=== PATIENT | female | born 1940 | race Caucasian/White ===

== ENCOUNTER 2017-07-09 07:28 | Day surgery (SDC) | payer OTHER ==
[2017-07-07 11:55] VITALS: BMI 27.1
[2017-07-09] MEDS ORDERED: TROPICAMIDE 1% OPHTH SOLN 15 ML BOTTLE ONE (07:57)
[2017-07-09] MEDS ORDERED: PHENYLEPHRINE 2.5% OPHTH SOLN 15 ML BOTTLE ONE (07:58)
[2017-07-09] MEDS ORDERED: CIPROFLOXACIN 0.3% EYE DROPS 5 ML BOTTLE ONE (07:58)
[2017-07-09] MEDS ORDERED: CYCLOPENTOLATE 2% OPHTH SOLN 2 ML BOTTLE ONE (07:58)
[2017-07-09] MEDS ORDERED: CARBACHOL 0.01% INTRA-OCULAR 1.5 ML VIAL ONE (07:59)
[2017-07-09] MEDS ORDERED: BSS (NA/CA/MG/K) BALANCED SALT SOLUTION OPHTH SOLN 15 ML BOTTLE ONE (07:59)
[2017-07-09 08:21] VITALS: TEMP 97.8
[2017-07-09] MEDS ORDERED: MIDAZOLAM HCL 2 MG/2 ML SINGLE DOSE VIAL ONE (10:22)
--- NOTE | 2017-07-09 11:05 | OP ---
DATE OF OPERATION: 07/09/2017 OPERATIVE PROCEDURE: Lens Phacoemulsification with Posterior Chamber Intraocular Lens Placement Left Eye PREOPERATIVE DIAGNOSIS: Visually Significant Cataract of Left Eye POSTOPERATIVE DIAGNOSIS: Visually Significant Cataract of Left Eye SURGEON: Reg Campoverde M.D. ANESTHESIA: MAC PROCEDURE: The patient was brought to the operating room and placed under monitored anesthesia care by Anesthesia. A drop of Tetracaine was then placed over the left eye. The patient was then prepped and draped in the usual sterile manner. A speculum was then placed over the left eye. The eye was then well irrigated with copious amounts of BSS (balanced salt solution). The operating microscope was then moved into position. A paracentesis was performed using a 15 degree blade. At this point 0.5 mL of 1% preservative-free lidocaine was injected into the anterior chamber. Amvisc plus was then injected into the anterior chamber. A clear corneal incision was then formed using a 2.2-mm keratome. A capsulorrhexis was then performed in a continuous circular fashion beginning with a cystotome, completed with an Utratas forceps. Hydrodissection was then performed using BSS on a cannula. The phaco probe was then introduced through the corneal wound and the cataract was removed using the phaco chop technique. Approximately 3 seconds of absolute phaco time was used. The remaining cortex was then removed using irrigation and aspiration with an I/A probe. The capsule was then filled with regular Amvisc and the capsule was noted to be intact. A previously selected foldable posterior chamber intraocular lens was then injected into the capsule through the corneal wound using a lens injector. It was then dialed into position using a Sinskey hook. The Amvisc was then removed using irrigation and aspiration. Miostat was then injected through the paracentesis to constrict the pupil. The paracentesis and corneal wound were then hydrated and noted to be water tight. A drop of Maxitrol was then placed over the eye. The speculum was removed and clear shield was taped over the eye. The patient tolerated the procedure well and there were no surgical complications. The patient was asked to follow up in my office the next day. REG CAMPOVERDE M.D. JARETT/[id number]
[2017-07-09 11:35] VITALS: BP 138/65; PULSE 74
== END 2017-07-09 11:30 | disposition home or self-care (01) ==
LOC: FASU 07:28
PROVIDERS: ATTEND Ophthalmology
PROC: 08RK3JZ Replacement of Left Lens with Synthetic Substitute, Percutaneous Approach (ICD-10-PCS; principal; 2017-07-09 10:31)
DX: H26.8 Other specified cataract (principal)

== ENCOUNTER 2017-07-23 07:27 | Day surgery (SDC) | payer OTHER ==
[2017-07-21 12:08] VITALS: BMI 27.1
[2017-07-23] MEDS ORDERED: CIPROFLOXACIN 0.3% EYE DROPS 5 ML BOTTLE ONE (07:57)
[2017-07-23] MEDS ORDERED: CYCLOPENTOLATE 2% OPHTH SOLN 2 ML BOTTLE ONE (07:57)
[2017-07-23] MEDS ORDERED: TROPICAMIDE 1% OPHTH SOLN 15 ML BOTTLE ONE (07:58)
[2017-07-23] MEDS ORDERED: PHENYLEPHRINE 2.5% OPHTH SOLN 15 ML BOTTLE ONE (07:58)
[2017-07-23] MEDS ORDERED: LIDOCAINE 1% P/F 10 MG/ML VIAL ONE (08:17)
[2017-07-23] MEDS ORDERED: BSS (NA/CA/MG/K) BALANCED SALT SOLUTION OPHTH SOLN 15 ML BOTTLE ONE (08:18)
[2017-07-23] MEDS ORDERED: CARBACHOL 0.01% INTRA-OCULAR 1.5 ML VIAL ONE (08:18)
[2017-07-23] MEDS ORDERED: MIDAZOLAM HCL 2 MG/2 ML SINGLE DOSE VIAL ONE (09:06)
[2017-07-23 09:48] VITALS: TEMP 97.6
[2017-07-23 10:14] VITALS: BP 135/69; PULSE 65
--- NOTE | 2017-07-23 17:35 | OP ---
DATE OF OPERATION: 07/23/2017 OPERATIVE PROCEDURE: Lens Phacoemulsification with Posterior Chamber Intraocular Lens Placement Right Eye PREOPERATIVE DIAGNOSIS: Visually Significant Cataract of Right Eye POSTOPERATIVE DIAGNOSIS: Visually Significant Cataract of Right Eye SURGEON: Reg Campoverde M.D. ANESTHESIA: MAC ANESTHESIOLOGIST: PROCEDURE: The patient was brought to the operating room and placed under monitored anesthesia care by Anesthesia. A drop of Tetracaine was then placed over the right eye. The patient was then prepped and draped in the usual sterile manner. A speculum was then placed over the right eye. The eye was then well irrigated with copious amounts of BSS (balanced salt solution). The operating microscope was then moved into position. A paracentesis was performed using a 15 degree blade. At this point 0.5 mL of 1% preservative-free lidocaine was injected into the anterior chamber. Amvisc plus was then injected into the anterior chamber. A clear corneal incision was then formed using a 2.2 mm keratome. A capsulorrhexis was then performed in a continuous circular fashion beginning with a cystotome, completed with an Utratas forceps. Hydrodissection was then performed using BSS on a cannula. The phaco probe was then introduced through the corneal wound and the cataract was removed using the phaco chop technique. Approximately 3 seconds of absolute phaco time was used. The remaining cortex was then removed using irrigation and aspiration with an I/A probe. The capsule was then filled with regular Amvisc and the capsule was noted to be intact. A previously selected foldable posterior chamber intraocular lens was then injected into the capsule through the corneal wound using a lens injector. It was then dialed into position using a Sinskey hook. The Amvisc was then removed using irrigation and aspiration. Miostat was then injected through the paracentesis to constrict the pupil. The paracentesis and corneal wound were then hydrated and noted to be water tight. A drop of Maxitrol was then placed over the eye. The speculum was removed and clear shield was taped over the eye. The patient tolerated the procedure well and there were no surgical complications. The patient was asked to follow up in my office the next day. REG CAMPOVERDE M.D. JARETT/[id number]
== END 2017-07-23 10:15 | disposition home or self-care (01) ==
LOC: FASU 07:27
PROVIDERS: ATTEND Ophthalmology
PROC: 08RJ3JZ Replacement of Right Lens with Synthetic Substitute, Percutaneous Approach (ICD-10-PCS; principal; 2017-07-23 09:15)
DX: H26.8 Other specified cataract (principal)

== ENCOUNTER 2018-07-18 21:49 | Emergency (ER) | payer OTHER ==
[2018-07-18 22:04] VITALS: PULSE 75; TEMP 97.5; BMI 30.2
[2018-07-18] MEDS ORDERED: NITROGLYCERIN SUBLINGUAL 1/150 0.4 MG TAB SL ONE (22:07)
[2018-07-18] MEDS ORDERED: ACETAMINOPHEN 500 MG TABLET (FP) PO ONE (22:15)
[2018-07-18] MEDS ORDERED: ACETAMINOPHEN 325 MG TABLET (FP) ONE (22:21)
--- NOTE | 2018-07-18 22:36 | PDOC ---
Attending Attestation - Resident Resident Name: Cari Rutherford - ED Attending Attestation I have performed the following: I have examined & evaluated the patient, The case was reviewed & discussed with the resident, I agree w/resident's findings & plan <Maria Luisa June - Last Filed: 07/18/18 22:54> - HPI HPI: 07/18/18 23:00 The patient is a 77 year old female with past medical history of hyperlipidemia , s/p left TKR who presents to the ED with elevated blood pressure. 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 Today she was at [facility] visiting her extremely ill when her blood pressure went up to the 200s. She reported an associated headache. In the ED, the initial reading was 170 and subsequently went down to the 140s after to sublingual nitroglycerin. Patient denies any associated chest pain, palpitations, shortness of breath, diaphoresis, lightheadedness or syncope. Denies any recent illness, fevers or chills. - Physicial Exam PE: 07/18/18 23:01 GENERAL: Awake, alert, and fully oriented, in no acute distress HEAD: No signs of trauma LUNGS: Breath sounds equal, clear to auscultation bilaterally HEART: Regular rate and rhythm ABDOMEN: Soft, nontender, normoactive bowel sounds. EXTREMITIES: Normal range of motion, no edema. NEUROLOGICAL: Cranial nerves II through XII grossly intact. Normal speech SKIN: Warm, Dry, normal turgor, no rashes - Medical Decision Making 07/18/18 23:02 Documentation prepared by Reyna Childs, acting as medical translator for Maria Luisa June MD. <Reyna Childs - Last Filed: 07/18/18 23:02>
[2018-07-18 22:54] VITALS: BP 152/57
--- NOTE | 2018-07-18 23:07 | PDOC ---
History of Present Illness - General Chief Complaint: Blood Pressure Problem Stated Complaint: BLOOD PRESSURE PROBLEM Time Seen by Provider: 07/18/18 22:32 - History of Present Illness Initial Comments: 07/18/18 23:06 The patient is a 77 year old female with a PMH of HLD who presents to our ED c/ o outside readings of elevated BP. Patient states she was visiting her who is at [facility] (s/p CVA) when she had her BP checked x3 and it was a systolic in the 200's prompting her visit to the ED. Evaluated by her PMD earlier this week with SBP in 150's. States she became concerned because she has no h/o high blood pressure noting her pressures are of SBP 110's. Notes a lot of life stressors including her 's recent CVA as well as her sister having Lewy Body Dementia. Patient's friend had a stroke last month and patient is concerned she might be at risk for stroke. Patient follows with a booster plant operator with last evaluation two weeks previous. States she had a ANTONIA, carotid doppler and LE duplex in 07/2017 with no abnormal/concerning findings. Repeat annual ANTONIA, carotid doppler and LE duplex scheduled for 08/07/18. ROS is positive for headache. Patient denies shortness of breath, chest pain, LE swelling, nausea/vomiting, lightheadedness, palpitations. NKDA Social: denies toxic habits PMD: Dr. Iverson Past History - Past Medical History Allergies/Adverse Reactions: Allergies Allergy/AdvReac Type Severity Reaction Status Date / Time iodine Allergy Severe Low Blood Verified 07/23/17 08:19 Pressure celecoxib [From Celebrex] Allergy Intermediate Rash Verified 07/23/17 08:19 ibuprofen [From Advil] Allergy Intermediate Rash Verified 04/24/18 08:09 nabumetone [From Relafen] Allergy Intermediate Rash Verified 04/24/18 08:09 oxycodone [Oxycodone] Allergy Intermediate Rash Verified 04/24/18 08:09 Sulfa (Sulfonamide Allergy Intermediate Rash Verified 04/24/18 08:09 Antibiotics) levofloxacin [From Levaquin] Allergy Verified 04/24/18 08:09 nitrofurantoin Allergy Verified 04/24/18 08:09 cephalexin AdvReac Severe severe Verified 04/24/18 08:09 constipation tramadol AdvReac Intermediate Nausea Verified 04/24/18 08:09 PCE 333 Allergy Severe Difficulty Uncoded 04/24/18 08:09 Breathing Home Medications: Ambulatory Orders Aspirin [ASA -] 81 mg PO DAILY 03/08/13 Ranitidine [Zantac -] 150 mg PO BID 03/08/13 Red Yeast Rice 600 mg PO DAILY 03/08/13 Ubidecarenone [Co Q-10] 10 mg PO DAILY 03/08/13 Cholecalciferol (Vitamin D3) [Vitamin D-3] 2,000 unit PO DAILY 03/10/13 Docosahexanoic Acid/Epa [Fish Oil Softgel] 1 each PO DAILY 03/10/13 Multivitamin [Multivitamins] 1 each PO DAILY 03/10/13 Vitamin B Complex [B Complex] 1 each PO DAILY 03/10/13 Hydrochlorothiazide [Hctz -] 25 mg PO DAILY #30 tablet 07/18/18 Hydrochlorothiazide [Hctz -] 25 mg PO DAILY #30 tablet 07/19/18 Anemia: No Asthma: No Cancer: No Cardiac Disorders: No CVA: No COPD: No CHF: No Dementia: No Diabetes: No GI Disorders: Yes (GERD) Disorders: No HTN: No Hypercholesterolemia: Yes (NO MEDS) Liver Disease: No Seizures: No Thyroid Disease: No - Surgical History Abdominal Surgery: No Appendectomy: No Cardiac Surgery: No Cholecystectomy: No Lung Surgery: No Neurologic Surgery: No Orthopedic Surgery: Yes (LEFT TKR 2010) - Suicide/Smoking/Psychosocial Hx Smoking History: Never smoked Have you smoked in the past 12 months: No Hx Alcohol Use: No Drug/Substance Use Hx: No Substance Use Type: Alcohol Hx Substance Use Treatment: No Review of Systems - Review of Systems Constitutional: No: Chills, Fever HEENTM: No: Blurred Vision Respiratory: No: Cough, Shortness of Breath Cardiac (ROS): No: Chest Pain, Lightheadedness, Palpitations, Syncope ABD/GI: No: Constipated, Diarrhea, Nausea, Vomiting Neurological: Yes: Headache Psychiatric: Yes: Anxiety *Physical Exam - Vital Signs Last Vital Signs Temp Pulse Resp BP Pulse Ox 97.5 F L 75 20 152/57 L 97 07/18/18 21:58 07/18/18 21:58 07/18/18 21:58 07/18/18 22:54 07/18/18 21:58 - Physical Exam General Appearance: Yes: Nourished, Appropriately Dressed HEENT: positive: Normal Voice, Hearing Grossly Normal Neck: positive: Trachea midline, Supple Respiratory/Chest: positive: Lungs Clear, Normal Breath Sounds. negative: Labored Respiration, Rapid RR, Crackles, Rales, Rhonchi, Stridor, Wheezing Cardiovascular: positive: S1, S2, Systolic Murmur. negative: Tachycardia Vascular Pulses: Dorsalis-Pedis (R): 2+, Doralis-Pedis (L): 2+ Gastrointestinal/Abdominal: positive: Normal Bowel Sounds, Soft, Other ( reducible umbilical hernia) Musculoskeletal: negative: CVA Tenderness (R), CVA Tenderness (L) Extremity: positive: Normal Capillary Refill, Normal Inspection Integumentary: positive: Normal Color, Dry, Warm Neurologic: positive: Fully Oriented, Alert Moderate Sedation - Procedure Monitoring Vital Signs: Procedure Monitoring Vital Signs Temperature 97.5 F L 07/18/18 21:58 Pulse Rate 75 07/18/18 21:58 Respiratory Rate 20 07/18/18 21:58 Blood Pressure 152/57 L 07/18/18 22:54 O2 Sat by Pulse Oximetry (%) 97 07/18/18 21:58 Heart Score/ECG Review - ECG Impressions Comment:: 07/19/18 06:25 ECG shows HR 66, NSR with LAD, LVH, no SANDY/STD/TWI ED Treatment Course - Medications Given in the ED: ED Medications Discontinued Medications Generic Name Dose Route Start Last Admin Trade Name Freq PRN Reason Stop Dose Admin Acetaminophen 1,000 mg 07/18/18 22:15 07/18/18 22:26 Tylenol - PO 07/18/18 22:16 1,000 mg ONCE ONE Administration Nitroglycerin 0.8 mg 07/18/18 22:07 07/18/18 22:11 Nitrostat - SL 07/18/18 22:08 0.8 mg ONCE ONE Administration Medical Decision Making - Medical Decision Making 07/18/18 23:07 77 year old female with acute onset high blood pressure (215/89 @ presentation) . C/o headache. H/o multiple life stressors. No focal neurologic deficit on exam. Repeat BP 130's/90's. Will obtain ECG and give trial of Hydralazine. Reassess. 07/18/18 23:27 ECG shows HR 66, NSR, LAD and LVH, no SANDY/STD/TWI No previous ECG in EMR S/p Hydralazine patient's BP 152/97. Will give patient outpatient Hydralazine prescription and discharge home 07/19/18 06:01 07/19/18 06:01 07/19/18 06:04 07/19/18 06:25 07/19/18 06:27 *DC/Admit/Observation/Transfer Diagnosis at time of Disposition: High blood pressure - Discharge Dispostion Disposition: HOME Condition at time of disposition: Good Decision to Admit order: No - Prescriptions Prescriptions: Hydrochlorothiazide [Hctz -] 25 mg PO DAILY #30 tablet Hydrochlorothiazide [Hctz -] 25 mg PO DAILY #30 tablet - Referrals Referrals: Lilia Iverson MD [Primary Care Provider] - - Patient Instructions Printed Discharge Instructions: DI for High Blood Pressure Additional Instructions: You were evaluated today for your high blood pressure. At this time you are safe for discharge home. We have sent a prescription for a blood pressure medication to your pharmacy. Please take as directed. Follow-up with your primary care doctor in the next week for further evaluation. Your care is not complete until you are evaluated by your primary care doctor. - Post Discharge Activity
[2018-07-18] MEDS ORDERED: VALSARTAN 40 MG TABLET (FP) PO ONE (23:21)
[2018-07-18] MEDS ORDERED: VALSARTAN 80 MG TABLET (UD) ONE (23:22)
--- NOTE | 2018-07-20 11:23 | EKG ---
Test Reason : Blood Pressure : / mmHG Vent. Rate : 066 BPM Atrial Rate : 066 BPM P-R Int : 176 ms QRS Dur : 094 ms QT Int : 416 ms P-R-T Axes : 045 -36 020 degrees QTc Int : 436 ms NORMAL SINUS RHYTHM POSSIBLE LEFT ATRIAL ENLARGEMENT LEFT AXIS DEVIATION LEFT VENTRICULAR HYPERTROPHY ABNORMAL ECG WHEN COMPARED WITH ECG OF 09-SEP-2001 16:57, NO SIGNIFICANT CHANGE WAS FOUND Confirmed by JONAH MURO, LJ ([id number]) on 07/20/2018 11:23:32 AM Referred By: Confirmed By:LJ MCKENZIE MD
== END 2018-07-18 23:31 | disposition home or self-care (01) ==
LOC: SUPCPDRO 21:49 → JER 21:49
DX: I10 Essential (primary) hypertension (principal); E78.5 Hyperlipidemia, unspecified; Z96.651 Presence of right artificial knee joint
CPT/HCPCS: 93005; 93010; 99282-25

== ENCOUNTER 2020-02-23 07:58 | Day surgery (SDC) | payer OTHER ==
--- NOTE | 2019-11-10 10:00 | HP ---
DATE OF ADMISSION: 12/08/2019 DATE OF DICTATION: 10/19/2019 REASON FOR ADMISSION: Cholelithiasis, biliary colic. BRIEF HISTORY: This is a 79-year-old female who has occasional bouts of epigastric and right upper quadrant pain after eating. The episodes would last less than 6 hours and then resolve. She underwent an ultrasound that demonstrated multiple gallstones without evidence of cholecystitis. She denies a change in stool color, urine color. She has no fever, chills, or sweats. The patient is here today for a laparoscopic cholecystectomy. PAST MEDICAL HISTORY: Significant for reflux disease, hypercholesterolemia. Patient has a history of bladder incontinence and is status post 2 bladder suspension operations. PAST SURGICAL HISTORY: She has had GALINDO/BSO via lower midline. She has had anterior and posterior vaginal repair. Left knee replacement. Cataract surgery. ALLERGIES: IODINE, SULFA, TRAMADOL, RELAFEN, ADVIL, CELEBREX, OXYCODONE, KEFLEX, LEVAQUIN, CIPRO, and NITROFURANTOIN. MEDICATIONS: Red yeast rice, Potassium, Magnesium, Centrum Silver, Vitamin D, Low dose Aspirin, Cultrelle Probiotic, Vitamin B Complex, Vitamin C, Tums and Prevacid AC. SOCIAL HISTORY: She does not smoke. Does not drink. No history of drug use. PHYSICAL EXAMINATION: HEENT: There is no icterus. Abdomen: Soft, nontender, nondistended. IMPRESSION/PLAN: Biliary colic, symptomatic cholelithiasis. This is a 79-year-old female with an ultrasound consistent with cholelithiasis and a history of consistent with biliary colic. I think some of her discomfort could be related to reflux disease, and some of it is also related to her gallbladder, and therefore, I think performed a laparoscopic cholecystectomy in this setting would be helpful even though it will not completely alleviate the other issues she has such as reflux. Patient will be scheduled for a laparoscopic cholecystectomy, possible open. The indications, alternatives, and complications of procedure discussed. Questions answered. We will plan to obtain written consent the day of surgery. YUKO LUCIANO M.D. [id number] cc: Lilia Iverson MD [facility]
[2020-02-23] MEDS ORDERED: ONDANSETRON 4 MG/2 ML VIAL ONE (08:06)
[2020-02-23] MEDS ORDERED: GLYCOPYRROLATE 0.2 MG/1 ML VIAL ONE (08:06)
[2020-02-23] MEDS ORDERED: DEXAMETHASONE SOD PHOSPHATE 4 MG/1 ML VIAL ONE (08:06)
[2020-02-23] MEDS ORDERED: MIDAZOLAM HCL 2 MG/2 ML SINGLE DOSE VIAL ONE (08:07)
[2020-02-23] MEDS ORDERED: PROPOFOL 20 ML ONE (08:07)
[2020-02-23] MEDS ORDERED: ROCURONIUM BROMIDE 50 MG/5 ML SYRINGE ONE (08:07)
[2020-02-23] MEDS ORDERED: NEOSTIGMINE METHYLSULFATE 0.5 MG/ML - 10 ML MDV ONE (08:07)
[2020-02-23 08:24] VITALS: BMI 25.1
[2020-02-23] MEDS ORDERED: ceFAZolin SODIUM 1 GM VIAL ONE (10:08)
[2020-02-23] MEDS ORDERED: ONDANSETRON 4 MG/2 ML VIAL IVPUSH PRN ×2 (10:57→11:06)
[2020-02-23] MEDS ORDERED: morphine SULFATE 4 MG/ML VIAL IVPB PRN (11:06)
[2020-02-23] MEDS ORDERED: oxyCODONE HCL 5 MG TABLET PO PRN (11:06)
[2020-02-23] MEDS ORDERED: D5-1/2NS+20 MEQ KCL - 20 MEQ/1,000 ML INFUS.BAG IV SCH (11:15)
[2020-02-23] MEDS: ACETAMINOPHEN 500 MG TABLET (FP) PO PRN ×3 (11:45→21:12)
--- NOTE | 2020-02-23 15:40 | OP ---
DATE OF OPERATION: 02/23/2020 PREOPERATIVE DIAGNOSIS: Biliary colic, symptomatic cholelithiasis. POSTOPERATIVE DIAGNOSIS: Biliary colic, symptomatic cholelithiasis. PROCEDURE: Laparoscopic cholecystectomy. SURGEON: Yuko Luciano MD TILTING HEAD BAND SAWYER: Sony Helms MD ANESTHESIA: Lyndon Conti MD (general) ESTIMATED BLOOD LOSS: Minimal. SPECIMEN: Gallbladder. BRIEF HISTORY: This is a 79-year-old female who has bouts of epigastric and right upper quadrant pain. She is symptomatic from biliary disease and here for a laparoscopic cholecystectomy. DESCRIPTION OF PROCEDURE: Patient identified and appropriately positioned on the operating table. After placement of anesthesia, the abdomen was prepped and draped in the usual sterile fashion using ChloraPrep. An infraumbilical incision is made, deepened to subcutaneous tissue. The fascia was divided sharply, the peritoneum incised. Under direct vision, an 11-mm port placed. The remaining 3 ports placed under direct vision as well. The gallbladder identified in the right upper quadrant. It is reflected over the dome of the liver in standard fashion, going from lateral to medial, and neck and the infundibulum of the gallbladder identified, followed by the cystic duct. The cystic duct circumferentially isolated, clipped, and then divided. The cystic artery identified more medially and posteriorly. This was subsequently clipped and then divided in a similar fashion. The gallbladder itself was removed from the liver bed with electrocautery. Prior to completing, the liver bed was irrigated and the operative field noted to be hemostatic. The ports removed under direct vision. Port sites hemostatic. The gallbladder brought out through the umbilical port site. The fascia at the umbilicus reapproximated with interrupted 0 Vicryl suture, all skin closed with 4-0 subcuticular Biosyn followed by Dermabond. At the conclusion of the case, sponge, lap, needle, and instrument counts correct. ATTESTATION: Brief operative note handwritten on the preprinted form. [facility] queried prior to giving any narcotics. YUKO LUCIANO M.D. [id number] MTDD
[2020-02-23] MEDS: FAMOTIDINE 20 MG/50 ML IVPB 20 MG/50 ML MG IVPB SCH (21:10)
[2020-02-24] MEDS: FAMOTIDINE 20 MG/50 ML IVPB 20 MG/50 ML MG IVPB SCH (09:41)
[2020-02-24] MEDS ORDERED: ENOXAPARIN NA (PORCINE) 40 MG/0.4 ML DISP.SYRIN SQ SCH (10:00)
[2020-02-24] MEDS ORDERED: ASPIRIN 81 MG CHEWABLE TABLETS PO SCH ×2 (10:00)
[2020-02-24 10:04] VITALS: BP 136/55; PULSE 70; TEMP 98.5
--- NOTE | 2020-02-25 16:39 | PATH ---
Surgical Pathology Report Patient Name: LEANNA MENDEZ Med. Rec. #: [id number] /Age/Gender: 1940 (Age: 79) / F Account: [id number] Location: [facility] Taken: 02/23/2020 Received: 02/23/2020 Reported: 02/25/2020 Physicians: Johnny Bennett Specimen(s) Received GALLBLADDER Clinical History Acute cholecystitis Final Diagnosis GALLBLADDER, CHOLECYSTECTOMY: GALLBLADDER SHOWING CHRONIC CHOLECYSTITIS WITH ADENOMYOMATOUS HYPERPLASIA. CHOLELITHIASIS. Electronically Signed Gabriela Barrera M.D. Gross Description Received in formalin, labeled "gallbladder," is an 8.0 x 3.4 x 3.1 cm. gallbladder with a 0.2 cm. in length portion of cystic duct attached. The outer surface is morley green and varies from smooth to shaggy. The lumen contains green, tenacious bile as well as 2 brown, irregular choleliths averaging 1.5 cm greatest dimension. The mucosa displays 3 raised nodular lesions ranging around 0.2-0.3 cm in greatest dimension. The remaining mucosa is green with focal erosions. The wall of the gallbladder measures 0.1 cm. in thickness. Loading Unit Tool Setter sections are submitted in 2 cassettes as follows: 1-nodular lesions; 2-cystic duct margin and marketing sales representative uninvolved gallbladder mucosa. /02/24/[address] [facility]02/24/2020
== END 2020-02-24 10:18 | disposition home or self-care (01) ==
LOC: FASU 07:58 → FASUSAT 07:58 → FM/S 15:09 → FASUSAT 02-24 10:18
PROVIDERS: ATTEND Surgery
PROC: 0FT44ZZ Resection of Gallbladder, Percutaneous Endoscopic Approach (ICD-10-PCS; principal; 2020-02-23 10:06)
DX: K80.51 Calculus of bile duct without cholangitis or cholecystitis with obstruction (principal); E78.00 Pure hypercholesterolemia, unspecified
CPT/HCPCS: 88304-TC; 94760

== ENCOUNTER 2020-05-08 01:43 | Emergency (ER) | payer OTHER ==
--- OUTSIDE RECORDS SUMMARY | 2020-05-08 02:14 | XMS ---
:1940 Author Organization [facility] Support Name Relationship Address Phone CARLIN ANDERSON DAUGHTER [address] [place] [address] RE Unavailable Unavailable Unavailable FABI MENDEZ [address] [phone] [place] [address] Re-disclosure Warning The records that you are about to access may contain information from federally- assisted alcohol or drug abuse programs. If such information is present, then the following federally mandated warning applies: This information has been disclosed to you from records protected by federal confidentiality rules (42 CFR part 2). The federal rules prohibit you from making any further disclosure of this information unless further disclosure is expressly permitted by the written consent of the person to whom it pertains or as otherwise permitted by 42 CFR part 2. A general authorization for the release of medical or other information is NOT sufficient for this purpose. The Federal rules restrict any use of the information to criminally investigate or prosecute any alcohol or drug abuse patient.The records that you are about to access may contain highly sensitive health information, the redisclosure of which is protected by Article 27-F of the [facility] Public Health law. If you continue you may haveaccess to information: Regarding HIV / AIDS; Provided by facilities licensed or operated by the [facility] Office of Mental Health; or Provided by the [facility] Office for People With Developmental Disabilities. If such information is present, then the following [facility] mandated warning applies: This information has been disclosed to you from confidential records which are protected by state law. State law prohibits you from making any further disclosure of this information without the specific written consent of the person to whom it pertains, or as otherwise permitted by law. Any unauthorized further disclosure in violation of state law may result in a fine or alf sentence or both. A general authorization for the release of medical or other information is NOT sufficient authorization for further disclosure. Insurance Providers Payer name Policy type Policy ID Covered Covered green party's Policy P maliha / Coverage green party ID relationship to Vidal Inf ormation type vidal [employer] [id number] SP [id number] 02 HEALTHCARE HMO 2 MEDICARE [id number] SP [id number] [employer] [id number] SP [id number] 02 HEALTHCARE HMO 2 [employer] (HMO) [id number] 2 [place] MEDIC[place] [id number] PART B DOWNSTATE Results ID Date Data Source [id number] 02/20/2020 09:36:00 AM EDT [facility] Name Value Range Interpretation Description Data Sup porting Code Source(s) Document(s ) SARS [facility] coronavirus 2 RNA This lab was ordered by BRIEN cho MORIAH and reported by [facility]. Procedure
[2020-05-08 02:16] VITALS: BP 182/63; PULSE 72; TEMP 98.5; BMI 28.0
--- NOTE | 2020-05-08 03:14 | PDOC ---
History of Present Illness - General Chief Complaint: Wound Stated Complaint: RIGHT LEG VEIN BLEEDING Time Seen by Provider: 05/08/20 02:48 History Source: Patient Exam Limitations: No Limitations - History of Present Illness Initial Comments: 05/08/20 03:13 79F PMH HTN presenting with a bleeding varicose vein on the lateral right calf after drying up from shower. No bleeding during shower or before. Put bandage on and BATOOL wrapped. Came in because bandage was soaked. Past History - Medical History Allergies/Adverse Reactions: Allergies Allergy/AdvReac Type Severity Reaction Status Date / Time iodine Allergy Severe Low Blood Verified 05/08/20 02:13 Pressure celecoxib [From Celebrex] Allergy Intermediate Rash Verified 05/08/20 02:13 ibuprofen [From Advil] Allergy Intermediate Rash Verified 05/08/20 02:13 nabumetone [From Relafen] Allergy Intermediate Rash Verified 05/08/20 02:13 oxycodone [Oxycodone] Allergy Intermediate Rash Verified 05/08/20 02:13 Sulfa (Sulfonamide Allergy Intermediate Rash Verified 05/08/20 02:13 Antibiotics) levofloxacin [From Levaquin] Allergy Verified 05/08/20 02:13 nitrofurantoin Allergy Verified 05/08/20 02:13 cephalexin AdvReac Severe severe Verified 05/08/20 02:13 constipation ciprofloxacin [From Cipro] AdvReac Severe Nausea Verified 05/08/20 02:13 tramadol AdvReac Intermediate Nausea Verified 05/08/20 02:13 PCE 333 Allergy Severe Difficulty Uncoded 05/08/20 02:13 Breathing Home Medications: Ambulatory Orders Aspirin [ASA -] 81 mg PO DAILY 03/08/13 Red Yeast Rice 600 mg PO DAILY 03/08/13 Ubidecarenone [Co Q-10] 10 mg PO DAILY 03/08/13 Cholecalciferol (Vitamin D3) [Vitamin D-3] 2,000 unit PO DAILY 03/10/13 Multivitamin [Multivitamins] 1 each PO DAILY 03/10/13 Vitamin B Complex [B Complex] 1 each PO DAILY 03/10/13 Ascorbate Calcium [Vitamin C] 500 mg PO DAILY 02/17/20 Magnesium 250 mg PO DAILY 02/17/20 Acetaminophen [Tylenol .Extra-Strength -] 1,000 mg PO Q4H PRN tablet 02/24/20 Aspirin [ASA -] 81 mg PO DAILY tab.chew 02/24/20 Valsartan [Diovan] 40 mg PO DAILY #30 tablet 05/08/20 Anemia: No Asthma: No Cancer: No Cardiac Disorders: No CVA: No COPD: No CHF: No Dementia: No Diabetes: No GI Disorders: Yes (GERD) Disorders: No HTN: No Hypercholesterolemia: Yes (NO MEDS) Liver Disease: No Seizures: No Thyroid Disease: No - Surgical History Abdominal Surgery: No Appendectomy: No Cardiac Surgery: No Cholecystectomy: No Lung Surgery: No Neurologic Surgery: No Orthopedic Surgery: Yes (LEFT TKR 2010) - Psycho-Social/Smoking History Smoking History: Never smoked Have you smoked in the past 12 months: No Information on smoking cessation initiated: No - Substance Abuse Hx (Audit-C & DAST Scrn) How often the patient has a drink containing alcohol: Never Score: In Men: 4 or > Positive; In Women: 3 or > Positive: 0 Screen Result (Pos requires Nsg. Audit-10AR): Negative In the last yr the pt used illegal drug/Rx for NonMed reason: No Score: Yes response is considered Positive: 0 Screen Result (Positive result requires Nsg. DAST-10): Negative Review of Systems - Review of Systems Comments:: 05/09/20 08:01 CONSTITUTIONAL: Denies F / C HEENT: Denies lightheadedness RESP: Denies SOB, cough CARD: Denies chest pain GI: Denies N / V / D, abdominal pain : Denies dysuria NEURO: Denies numbness, tingling, weakness MSK: Denies back pain SKIN: Denies rashes *Physical Exam - Vital Signs Last Vital Signs Temp Pulse Resp BP Pulse Ox 98.5 F 72 16 182/63 H 97 05/08/20 01:45 05/08/20 01:45 05/08/20 01:45 05/08/20 01:45 05/08/20 01:45 - Physical Exam 05/09/20 08:02 GEN: Well appearing, NAD, comfortable. AAOx3. HEENT: NC/AT, EOMI. No facial asymmetry. Normal voice. Supple neck w/ FROM. CV: S1/S2, RRR, no m/r/g LUNG: CTAB, no wheezes, crackles, rales, rhonchi. GI: Soft, ndnt, +BS, no guarding, no rebound. MSK: lateral right calf varicose vein under bandage, no longer bleeding. No obvious deformities of all extremities. SKIN: Warm, dry, no rashes appreciated. PSYCH: Normal mood and affect. NEURO: Moving all extremities well. Medical Decision Making - Medical Decision Making 05/09/20 08:02 79F for eval of bleeding varicose vein but no longer bleeding. BP elevated. Valsartan Rx. Bleed site re-wrapped. Discharged home. Discharge - Discharge Information Problems reviewed: Yes Clinical Impression/Diagnosis: Bleeding from varicose veins of right lower extremity Condition: Fair Disposition: HOME - Admission No - Additional Discharge Information Prescriptions: Valsartan [Diovan] 40 mg PO DAILY #30 tablet - Follow up/Referral Referrals: Lilia Iverson MD [Primary Care Provider] - - Patient Discharge Instructions Additional Instructions: We are sending a prescription to your pharmacy; please pick it up and take as prescribed. Follow up with your primary care doctor in the next 5-10 days. Your blood pressure was elevated today. Poor control of blood pressure can lead to serious long term acute care registered nurse consequences. Return to the Emergency Department if you experience new or worsening symptoms. - Post Discharge Activity
[2020-05-08] MEDS ORDERED: VALSARTAN 40 MG TABLET (FP) PO ONE (03:40)
[2020-05-08] MEDS ORDERED: VALSARTAN 80 MG TABLET (UD) ONE (03:46)
== END 2020-05-08 04:21 | disposition home or self-care (01) ==
LOC: JER 01:43
DX: I83.891 Varicose veins of right lower extremity with other complications (principal)
CPT/HCPCS: 99283-25

== ENCOUNTER → 2020-05-31 | Day surgery (SDC) | payer OTHER ==
--- OUTSIDE RECORDS SUMMARY | 2020-05-31 09:11 | XMS ---
:1940 Author Organization [facility] Support Name Relationship Address Phone CARLIN ANDERSON DAUGHTER [address] [place] [address] RE Unavailable Unavailable Unavailable FABI MENDEZ [address] [place] [address] FABI MENDEZ Spouse [address] [place] [place] [address] Re-disclosure Warning The records that you are [...] is protected by Article 27-F of the [facility] Public Health law. If you continue you may haveaccess to information: Regarding HIV / AIDS; Provided by facilities licensed or operated by the [facility] Office of Mental Health; or Provided by the [facility] Office for People With Developmental Disabilities. If such information is present, then the following [facility] mandated warning applies: This information has been [...] law may result in a fine or chcf sentence or both. A general authorization for the release of medical or other information is NOT sufficient authorization for further disclosure. Insurance Providers Payer name Policy type Policy ID Covered Covered republican's Policy P maliha / Coverage republican ID relationship to Vidal Inf ormation type vidal [employer] [id number] SP [id number] 02 HEALTHCARE HMO 2 MEDICARE [id number] SP [id number] [employer] [id number] SP [id number] HEALTHCARE HMO 2 [employer] (HMO) [id number] 2 [place] MED[place] [id number] PART B DOWNSTATE Results ID Date Data Source [id number] 02/20/2020 09:36:00 AM EDT [facility] Name Value Range Interpretation Description Data Sup porting Code Source(s) Document(s ) SARS [facility] coronavirus 2 RNA This lab was ordered by [facility] and reported by [facility]. Procedure
--- NOTE | 2020-06-05 11:25 | PATH ---
Cytology Non-Gynecological Report Patient Name: LEANNA MENDEZ [facility]. Rec. #: [id number] /Age/Gender: 1940 (Age: 79) / F Account: [id number] Location: RADIOLOGY INTER Taken: 05/31/2020 Received: 05/31/2020 Reported: 06/05/2020 Physicians: Rosanna Araujo M.D. Specimen(s) Received LEFT THYROID FNA Clinical History Left lobe nodule 2.2 x 0.8 x 1.4 cm Final Diagnosis THYROID, LEFT, FINE NEEDLE ASPIRATION: SATISFACTORY FOR EVALUATION BETHES[place] CLASS II: BENIGN FEW BENIGN FOLLICULAR CELLS, MACROPHAGES, AND ABUNDANT COLLOID PRESENT. Comment: Findings are suggestive of a colloid nodule. Clinical correlation is recommended. Electronically Signed Sabrina Kauffman M.D. Gross Description Received are eight direct smears, four of which are air-dried and Diff-Quik stained, and four of which are alcohol fixed and Pap stained. Also received is 20 ml of bloody formalin from which one cellblock is prepared.
== END | disposition home or self-care (01) ==
LOC: JRADIR 09:08
PROVIDERS: ATTEND Internal Medicine
PROC: 0G9G3ZX Drainage of Left Thyroid Gland Lobe, Percutaneous Approach, Diagnostic (ICD-10-PCS; principal; 2020-05-31)
DX: E04.1 Nontoxic single thyroid nodule (principal)
CPT/HCPCS: 76942; 88173; 88305-TC

== ENCOUNTER 2023-07-08 07:37 | Day surgery (SDC) | payer OTHER ==
[2023-07-03 11:37] VITALS: BMI 26.2
[2023-07-08] MEDS ORDERED: ceFAZolin SODIUM 1 GM VIAL ONE ×2 (08:29→09:22)
[2023-07-08] MEDS ORDERED: DEXAMETHASONE SOD PHOSPHATE 4 MG/1 ML VIAL ONE (08:29)
[2023-07-08] MEDS ORDERED: ONDANSETRON 4 MG/2 ML VIAL ONE (08:29)
[2023-07-08] MEDS ORDERED: MIDAZOLAM HCL 2 MG/2 ML SINGLE DOSE VIAL ONE (08:30)
[2023-07-08] MEDS ORDERED: PROPOFOL 40 ML ONE (08:30)
[2023-07-08] MEDS ORDERED: BUPIVACAINE HCL/PF 0.5% (5MG/ML) 10 ML VIAL ONE (09:19)
[2023-07-08] MEDS ORDERED: POVIDONE-IODINE 5% OPHTHALMIC PREP 30 ML SOLUTION ONE (09:19)
[2023-07-08] MEDS ORDERED: LIDOCAINE 1%/EPI 1:100000 (50 ML MULTI DOSE VIAL) ONE (09:19)
[2023-07-08] MEDS ORDERED: TETRACAINE 0.5% OPHTH SOLN 2 ML BOTTLE ONE (09:19)
[2023-07-08] MEDS ORDERED: ERYTHROMYCIN 0.5% OPHTHALMIC OINTMENT 3.5 GM TUBE ONE (09:19)
[2023-07-08] MEDS ORDERED: ONDANSETRON 4 MG/2 ML VIAL IVPUSH PRN (09:25)
[2023-07-08] MEDS ORDERED: LACTATED RINGERS SOLUTION 1,000 ML IV SCH (09:30)
[2023-07-08] MEDS ORDERED: CLINDAMYCIN 600MG PREMIX IVPB 600 MG/50 ML BAG IVPB ONE ×2 (09:53→10:16)
[2023-07-08 11:42] VITALS: PULSE 61
[2023-07-08 12:11] VITALS: RESP 18; TEMP 97.5
[2023-07-08 13:06] VITALS: BP 168/75
== END 2023-07-08 13:14 | disposition home or self-care (01) ==
LOC: FASU 07:37
PROVIDERS: ATTEND Ophthalmology
PROC: 0KX10Z2 Transfer Facial Muscle with Skin and Subcutaneous Tissue, Open Approach (ICD-10-PCS; 2023-07-08)
PROC: 08SR0ZZ Reposition Left Lower Eyelid, Open Approach (ICD-10-PCS; principal; 2023-07-08 10:14)
DX: H02.89 Other specified disorders of eyelid (principal); Z85.828 Personal history of other malignant neoplasm of skin
CPT/HCPCS: 94760